=== PATIENT | female | born 1985 | race Caucasian/White ===

== ENCOUNTER 2020-12-06 10:00 | Inpatient (IN) ==
[2020-12-06] MEDS ORDERED: Lidocaine 1% 20 ML MDV INFILT PRN (10:26)
[2020-12-06] MEDS ORDERED: Metoclopramide 10 MG/2 ML VIAL IVP PRN (10:26)
[2020-12-06] MEDS ORDERED: Azithromycin 500 MG in 0.9 % Sodium Chloride 250 ML IVPB ONE (10:26)
[2020-12-06] MEDS ORDERED: Naloxone 0.4 MG/ML INJ IVP PRN (10:26)
[2020-12-06] MEDS ORDERED: Famotidine 20 MG/2 ML VIAL IVP PRN (10:26)
[2020-12-06] MEDS ORDERED: *HR* Nalbuphine 10 MG/ML AMPUL IV PRN (10:26)
[2020-12-06] MEDS ORDERED: Oxytocin 20 units/ LR 1000 mL 20 UNIT/1,000 ML BAG IVC SCH ×2 (10:30→23:55)
[2020-12-06] MEDS ORDERED: D5% in 0.45% NACL 1,000 ML IVC SCH (10:30)
[2020-12-06 11:32] LABS: Basophils % 0.3 %; Eosinophils % 0.3 %; Hematocrit 36.5 % (35.3-44.9); Hemoglobin 12.2 g/dL (11.5-15.4); Immature Granulocytes % 0.4 % (0-4); Lymphocytes # 1.5 K/mcL (0.6-4.6); Lymphocytes % 12.8 %; Mean Corpuscular HGB Conc 33.4 g/dL (31.6-35.5); Mean Corpuscular Hemoglobin 33.8 pg (28.0-33.3); Mean Corpuscular Volume 101.1 fL (83.0-100.0); Mean Platelet Volume 9.6 fL (9.4-12.4); Monocytes # 0.7 K/mcL (0.0-1.3); Monocytes % 6.2 %; Neutrophils # 9.1 K/mcL (1.6-8.9); Platelet Count 146 K/mcL (140-400); Red Blood Count 3.61 M/mcL (3.82-4.97); Red Cell Distribution Width 12.4 % (11.5-14.5); White Blood Count 11.4 K/mcL (4.3-11.1)
[2020-12-06] MEDS ORDERED: Ringers Solution, Lactated 1,000 ML ONE ×2 (11:43→13:22)
[2020-12-06 11:44] LABS: Amphetamine Screen,Urine Negative ng/mL (Cutoff=1000); Barbiturate Screen,Urine Negative ng/mL (Cutoff=200); Benzodiazepines Screen,Urine Negative ng/mL (Cutoff=200); Cannabinoid Screen,Urine Negative ng/mL (Cutoff = 50); Cocaine Screen,Urine Negative ng/mL (Cutoff= 300); Opiate Screen,Urine Negative ng/mL (Cutoff=300); Phencyclidine Screen,Urine Negative ng/mL (Cutoff=25)
[2020-12-06 12:17] LABS: Adenovirus Not Detected (Not Detect); Bordetella Pertussis Not Detected (Not Detect); Chlamydophila pneumoniae Not Detected (Not Detect); Coronavirus 229E Not Detected (Not Detect); Coronavirus HKU1 Not Detected (Not Detect); Coronavirus NL63 Not Detected (Not Detect); Coronavirus OC43 Not Detected (Not Detect); Human Metapneumovirus Not Detected (Not Detect); Human Rhinovirus/Enterovirus Not Detected (Not Detect); Influenza A Subtype 2009 H1 Not Detected (Not Detect); Influenza B Not Detected (Not Detect); Mycoplasma pneumoniae Not Detected (Not Detect); Parainfluenza Virus 1 Not Detected (Not Detect); Parainfluenza Virus 2 Not Detected (Not Detect); Parainfluenza Virus 3 Not Detected (Not Detect); Parainfluenza Virus 4 Not Detected (Not Detect); Respiratory Syncytial Virus Not Detected (Not Detect); SARS-CoV-2 Not Detected (Not Detect)
[2020-12-06] MEDS ORDERED: EPHEDrine 50 MG/ML VIAL IVP PRN (12:36)
[2020-12-06] MEDS ORDERED: Epidural Premix (fent/bupiv) 110 ML EP SCH (12:45)
[2020-12-06] MEDS: Ondansetron 4 MG/2 ML VIAL IVP PRN ×2 (13:37→21:00)
[2020-12-06] MEDS ORDERED: Methylergonovine 0.2 MG/ML AMPUL IM ONE (21:59)
[2020-12-06] MEDS ORDERED: Acetaminophen 325 MG TABLET PO PRN (23:55)
[2020-12-06] MEDS ORDERED: Benzocaine/Menthol 56 GM AEROSOL SPRAY TP PRN (23:55)
[2020-12-06] MEDS ORDERED: Lanolin 7 G OINT...G. TP PRN (23:55)
[2020-12-06] MEDS ORDERED: Sennosides 8.6 MG TABLET PO PRN (23:55)
[2020-12-07] MEDS: Ibuprofen 600 MG TABLET PO PRN ×3 (00:43→17:31)
[2020-12-07 04:42] LABS: Basophils % 0.1 %; Eosinophils % 0.1 %; Hematocrit 34.5 % (35.3-44.9); Hemoglobin 11.6 g/dL (11.5-15.4); Immature Granulocytes % 0.6 % (0-4); Lymphocytes # 1.5 K/mcL (0.6-4.6); Lymphocytes % 9.4 %; Mean Corpuscular HGB Conc 33.6 g/dL (31.6-35.5); Mean Corpuscular Hemoglobin 33.8 pg (28.0-33.3); Mean Corpuscular Volume 100.6 fL (83.0-100.0); Mean Platelet Volume 9.5 fL (9.4-12.4); Monocytes # 1.3 K/mcL (0.0-1.3); Monocytes % 8.2 %; Neutrophils # 13.3 K/mcL (1.6-8.9); Platelet Count 125 K/mcL (140-400); Red Blood Count 3.43 M/mcL (3.82-4.97); Red Cell Distribution Width 12.2 % (11.5-14.5); Segmented Neutrophils % 81.6 %; White Blood Count 16.3 K/mcL (4.3-11.1)
[2020-12-07] MEDS ORDERED: Prenatal Vit/FA 1 EACH TABLET PO SCH (09:00)
[2020-12-07 20:43] VITALS: BP 106/72
== END 2020-12-07 22:00 | disposition home or self-care (01) | DRG 807 ==
LOC: 1NENULAB 10:11 → 1NENUOBS 12-07 02:01
PROVIDERS: ADMIT Student in an Organized Health Care Education/Training Program; ATTEND Student in an Organized Health Care Education/Training Program